=== PATIENT | female | born 2000 | race Caucasian/White ===

== ENCOUNTER → 2021-12-22 | Outpatient (CLI) | payer OTHER, SELFPAY ==
[2021-12-24 21:06] LABS: Chlamydia By Nucleic Acid AMP Negative (Negative)
[2021-12-25 07:41] LABS: Gonococcus By Nucleic Acid AMP Negative (Negative)
[2021-12-26 13:19] LABS: HPV Reflexed? NOT INDICATED
== END | disposition home or self-care (01) ==
PROVIDERS: PCP Pediatrics; Visit Provider Student in an Organized Health Care Education/Training Program
DX: Z12.4 Encounter for screening for malignant neoplasm of cervix (principal); Z11.3 Encounter for screening for infections with a predominantly sexual mode of transmission
CPT/HCPCS: 87491; 87591; 88175; G0145